=== PATIENT | female | born 1970 | race Hispanic/Latino ===

== ENCOUNTER 2020-06-20 13:05 | Emergency (ER) | payer BC, OTHER ==
[2020-06-20] MEDS ORDERED: SOLU-MEDROL 125MG VIAL ONE (13:40)
[2020-06-20] MEDS ORDERED: FAMOTIDINE 20MG TAB ONE (13:40)
[2020-06-20] MEDS ORDERED: DIPHENHYDRAMINE HCL 25 MG CAPSULE ONE (13:41)
[2020-06-20] MEDS ORDERED: KETOROLAC 60 MG VIAL (30MG/ML) ONE (13:42)
[2020-06-20] MEDS ORDERED: ACETAMINOPHEN 500 MG TABLET ONE (13:42)
[2020-06-20 14:06] LABS: EOSINOPHILS % (AUTO) 5.5 % (0.0-8.0); HEMATOCRIT 39.1 % (36-48); LYMPHOCYTES % (AUTO) 25.7 % (21.0-51.0); MEAN CORPUSCULAR HEMOGLOBIN 30.9 pg (27.0-33.0); MEAN CORPUSCULAR HGB CONC 34.3 g/dL (32.0-36.0); MEAN CORPUSCULAR VOLUME 90.3 fL (79-99); MONOCYTES % (AUTO) 10.2 % (3.0-13.0); NEUTROPHILS % (AUTO) 57.4 % (40.0-77.0); PLATELET COUNT (AUTO) 188 K/uL (130-400); RED BLOOD CELL COUNT(AUTO) 4.33 MIL/uL (4.00-5.50); WHITE BLOOD COUNT (AUTO) 8.6 K/uL (4.8-10.8)
[2020-06-20 14:10] LABS: CREATININE 0.9 mg/dL (0.5-1.5); POTASSIUM 3.5 mmol/L (3.5-5.1)
[2020-06-20 14:21] LABS: APPEARANCE,URINE Clear (CLEAR); BILIRUBIN,URINE Negative (NEGATIVE); COLOR,URINE Dark Yellow (YELLOW); GLUCOSE, URINE (UA) Negative (NEGATIVE); KETONES,URINE Trace mg/dL (NEGATIVE); LEUKOCYTE ESTERASE ,URINE Small (NEGATIVE); NITRATE,URINE Negative (NEGATIVE); OCCULT BLOOD,URINE Nonhemolyzed Trace (NEGATIVE); PROTEIN,URINE Negative (NEGATIVE)
[2020-06-20 14:23] LABS: ALBUMIN 3.8 g/dL (3.5-5.0); BILIRUBIN,TOTAL 0.5 mg/dL (0.2-1.0); TOTAL PROTEIN, SERUM 7.5 g/dL (6.0-8.3)
[2020-06-20 14:39] LABS: BACTERIA,URINE Few /HPF (None Seen); RBC,URINE 0-1 /HPF (0-1); WBC,URINE 0-1 /HPF (0-1)
== END 2020-06-20 15:16 | disposition home or self-care (01) ==
LOC: EDH 13:05
DX: G62.9 Polyneuropathy, unspecified (principal); T50.Z95A Adverse effect of other vaccines and biological substances, initial encounter; Z90.710 Acquired absence of both cervix and uterus
CPT/HCPCS: 36415; 80053; 81001; 84702; 85025; 96372 ×2; 99284; J1885; J2930; Q0163